=== PATIENT | female | born 1970 | race Hispanic/Latino ===

== ENCOUNTER → 2022-06-18 | Outpatient (CLI) | payer BC | END | disposition home or self-care (01) | LOC: RAH 08:35 | PROVIDERS: ATTEND Internal Medicine | DX: K21.00 Gastro-esophageal reflux disease with esophagitis, without bleeding (principal); R05.9 Cough, unspecified | CPT/HCPCS: 74240 ==

== ENCOUNTER → 2023-08-07 | Outpatient (CLI) | payer BC ==
[~2023-08-07] MED LIST: GADOTERATE MEGLUMINE 10 MMOL/20 ML VIAL IV ONE
== END | disposition home or self-care (01) ==
LOC: RAH 12:57
PROVIDERS: ATTEND Family Medicine
DX: M47.816 Spondylosis without myelopathy or radiculopathy, lumbar region (principal); M51.36 Other intervertebral disc degeneration, lumbar region; M41.26 Other idiopathic scoliosis, lumbar region; R20.2 Paresthesia of skin; R29.898 Other symptoms and signs involving the musculoskeletal system
CPT/HCPCS: 72158; A9575

== ENCOUNTER 2023-12-21 17:51 | Emergency (ER) | payer BC ==
[~2023-12-21] VITALS: Ht 165.1 cm; Wt 86.2 kg
[2023-12-21] MEDS: dexaMETHasone SOD PHOSPHATE 4 MG/ML 1ML VIAL IM ONE (18:40)
[2023-12-21] MEDS: ketOROlac 60 MG VIAL (30MG/ML) IM ONE (18:40)
[2023-12-21] MEDS ORDERED: IBUP-2077 PO (19:55)
[2023-12-21] MEDS ORDERED: METH4TAB3 PO (19:55)
[2023-12-21 19:57] VITALS: BP 134/59; PULSE 78; RESP 20; TEMP 98.8; O2SAT 97
== END 2023-12-21 20:01 | disposition home or self-care (01) ==
LOC: EDH 17:51
DX: M94.0 Chondrocostal junction syndrome [Tietze] (principal); I10 Essential (primary) hypertension
CPT/HCPCS: 99284; 71045; 96372 ×2; J1100; J1885